=== PATIENT | male | born 1970 | race African-American/Black ===

== ENCOUNTER 2018-05-14 18:12 | Inpatient (IN) ==
[2018-05-14 19:14] LABS: Basophils % 0.4 % (0.0-0.8); Eosinophils % 0.9 % (0.00-10.9); Immature Granulocytes % 0.2 %; Immature Granulocytes Absolute 0.01 #; Lymphocytes # 1.3 10*3/uL (1.4-4.0); Lymphocytes % 29.7 % (21.2-54.2); Mean Corpuscular HGB Conc 32.5 GM/DL (32-36); Mean Corpuscular Hemoglobin 30 PG (27-34); Mean Corpuscular Volume 92.8 FL (87-102); Mean Platelet Volume 8.8 FL (9.6-12.0); Monocytes # 0.5 10*3/uL (0.11-0.8); Monocytes % 11.1 % (1.7-12.7); Neutrophils # 2.6 10*3/uL (1.4-7.4); Neutrophils % 57.7 % (38.7-73.9); Platelet Count 237 T/CUMM (130-400); Red Blood Count 4.31 MC/CUMM (3.8-5.5); White Blood Count 4.5 T/CUMM (4-12)
[2018-05-14 19:22] LABS: Partial Thromboplastin Time 27.8 SECS (0-40)
[2018-05-14 19:36] LABS: Albumin 3.3 G/DL (3.4-5.0); Bilirubin,Total 0.5 MG/DL (0.2-1.0); Calcium 8.3 MG/DL (8.5-10.1); Osmolality,Calculated 280.3 MOS/KG (273-304); Total Protein 6.5 G/DL (6.4-8.3)
[2018-05-14 20:16] LABS: Troponin I Only < 0.015 NG/ML (0.00-0.045)
[2018-05-14] MEDS ORDERED: SODIUM CHLORIDE 0.45% 1,000 ML IV ONE (20:19)
[2018-05-14] MEDS: SODIUM CHLORIDE 0.45% 1,000 ML IV SCH (22:08)
[2018-05-14] MEDS ORDERED: ACETAMINOPHEN 325 MG TABLET PO PRN (22:28)
[2018-05-14] MEDS ORDERED: DEXTROSE 50% 25 GM/50 ML VIAL IV PRN (22:28)
[2018-05-14] MEDS ORDERED: ONDANSETRON 4 MG/2 ML VIAL IV PRN (22:28)
[2018-05-14] MEDS ORDERED: GLUCAGON 1 MG VIAL IM PRN (22:28)
[2018-05-14] MEDS ORDERED: traMADol 50 MG TABLET PO PRN (22:31)
[2018-05-14] MEDS ORDERED: ALBUTEROL/IPRATROPIUM 3 ML NEB RESP TX PRN (22:31)
[2018-05-14] MEDS ORDERED: ZALEPLON 5 MG CAPSULE PO PRN (22:31)
[2018-05-14] MEDS ORDERED: INSULIN GLARGINE HUM REC ANLOG 65 UNIT SUBCUT PRN (22:31)
[2018-05-14] MEDS ORDERED: DIAZEPAM 5 MG TABLET PO PRN (22:31)
[2018-05-14] MEDS ORDERED: ALBUTEROL 2.5 MG/3 ML NEB RESP TX PRN (22:31)
[2018-05-14] MEDS ORDERED: SODIUM CHLORIDE 0.9% 1,000 ML IV PRN (22:58)
[2018-05-14 23:08] LABS: Hematocrit 40.6 VOL% (42.0-52.0); Hemoglobin 13.3 GM/DL (14.0-18.0)
[2018-05-15] MEDS: BUDESONIDE/FORMOTEROL 160-4.5 INHALER 6 GM INH SCH ×3 (00:05→20:35)
[2018-05-15] MEDS: FLUTICASONE 50 MCG NASAL SPRAY 16 GM BOTTLE BOTH NARES SCH ×3 (00:05→20:38)
[2018-05-15] MEDS: PREGABALIN 50 MG CAPSULE PO SCH ×3 (00:11→20:35)
[2018-05-15] MEDS: ATORVASTATIN 20 MG TABLET PO SCH ×2 (00:12→20:35)
[2018-05-15] MEDS: POTASSIUM CHLORIDE 20 MEQ TABLET PO SCH ×3 (00:15→20:35)
[2018-05-15] MEDS: FLECAINIDE 100 MG TABLET PO SCH ×3 (00:15→20:34)
[2018-05-15 05:09] LABS: Basophils % 0.6 % (0.0-0.8); Eosinophils # 0.1 10*3/uL (0.0-0.87); Eosinophils % 1.4 % (0.00-10.9); Hematocrit 37.3 VOL% (42.0-52.0); Hematocrit 37.8 VOL% (42.0-52.0); Hemoglobin 12.4 GM/DL (14.0-18.0); Immature Granulocytes % 0.3 %; Immature Granulocytes Absolute 0.01 #; Lymphocytes # 1.5 10*3/uL (1.4-4.0); Lymphocytes % 40.2 % (21.2-54.2); Mean Corpuscular HGB Conc 32.8 GM/DL (32-36); Mean Corpuscular Hemoglobin 30 PG (27-34); Mean Corpuscular Volume 91.7 FL (87-102); Mean Platelet Volume 8.9 FL (9.6-12.0); Monocytes # 0.4 10*3/uL (0.11-0.8); Monocytes % 10.8 % (1.7-12.7); Neutrophils # 1.7 10*3/uL (1.4-7.4); Neutrophils % 46.7 % (38.7-73.9); Platelet Count 219 T/CUMM (130-400); Red Blood Count 4.12 MC/CUMM (3.8-5.5); White Blood Count 3.6 T/CUMM (4-12)
[2018-05-15] MEDS: INSULIN LISPRO 100 UNIT/ML SUBCUT SCH ×3 (05:30→17:09)
[2018-05-15 05:39] LABS: Calcium 8.1 MG/DL (8.5-10.1); Osmolality,Calculated 278.4 MOS/KG (273-304); Potassium 3.7 MMOL/L (3.5-5.1)
[2018-05-15] MEDS: MORPHINE 4 MG/1 ML VIAL IV PRN ×3 (05:45→18:06)
[2018-05-15] MEDS ORDERED: INSULIN LISPRO 100 UNIT/ML SUBCUT SCH (07:30)
[2018-05-15] MEDS: SODIUM CHLORIDE 0.45% 1,000 ML IV SCH ×2 (07:43→16:12)
[2018-05-15 09:58] LABS: Hematocrit 38.5 VOL% (42.0-52.0); Hemoglobin 12.5 GM/DL (14.0-18.0)
[2018-05-15] MEDS: CHOLECALCIFEROL 1,000 UNIT TABLET PO SCH (10:43)
[2018-05-15] MEDS: MONTELUKAST 10 MG TABLET PO SCH (10:43)
[2018-05-15] MEDS: PANTOPRAZOLE 40 MG TABLET PO SCH (10:43)
[2018-05-15] MEDS: FERROUS SULFATE 325 MG TABLET PO SCH (10:44)
[2018-05-15] MEDS: MULTIVITAMIN (CENTRUM) TABLET PO SCH (10:44)
[2018-05-15] MEDS: DILTIAZEM CD 300 MG CAPSULE PO SCH (10:44)
[2018-05-15] MEDS: CYCLOBENZAPRINE 10 MG TABLET PO SCH ×3 (10:44→20:35)
[2018-05-15 15:34] LABS: Hematocrit 37.1 VOL% (42.0-52.0); Hemoglobin 12.2 GM/DL (14.0-18.0)
[2018-05-15] MEDS: BISACODYL 5 MG TABLET PO SCH (16:13)
[2018-05-15] MEDS ORDERED: POLYETHYLENE GLYCOL POWDER 255 GM BOTTLE PO ONE (18:00)
[2018-05-15] MEDS ORDERED: MAGNESIUM CITRATE 300 ML BOTTLE PO ONE (21:00)
[2018-05-16] MEDS: SODIUM CHLORIDE 0.45% 1,000 ML IV SCH ×3 (00:25→15:26)
[2018-05-16] MEDS: BISACODYL 5 MG TABLET PO SCH ×2 (00:30→06:36)
[2018-05-16] MEDS: MORPHINE 4 MG/1 ML VIAL IV PRN ×3 (01:24→15:30)
[2018-05-16] MEDS: INSULIN LISPRO 100 UNIT/ML SUBCUT SCH ×4 (01:28→17:55)
[2018-05-16 07:55] LABS: Basophils % 0.3 % (0.0-0.8); Eosinophils # 0.1 10*3/uL (0.0-0.87); Eosinophils % 2.3 % (0.00-10.9); Hematocrit 37.8 VOL% (42.0-52.0); Hemoglobin 12.4 GM/DL (14.0-18.0); Lymphocytes # 1.4 10*3/uL (1.4-4.0); Lymphocytes % 46.3 % (21.2-54.2); Mean Corpuscular HGB Conc 32.8 GM/DL (32-36); Mean Corpuscular Hemoglobin 30 PG (27-34); Mean Corpuscular Volume 90.6 FL (87-102); Mean Platelet Volume 8.9 FL (9.6-12.0); Monocytes # 0.5 10*3/uL (0.11-0.8); Monocytes % 16.3 % (1.7-12.7); Neutrophils % 34.8 % (38.7-73.9); Platelet Count 229 T/CUMM (130-400); Red Blood Count 4.17 MC/CUMM (3.8-5.5)
[2018-05-16 08:20] LABS: Anisocytosis Slight; Band Neutrophils 10 % (0-10); Eosinophils 3 % (0-10); Lymphocytes 51 % (20-55); Platelet Estimate Normal; Segmented Neutrophils 25 % (50-85); Total Cells Counted 100
[2018-05-16 08:23] LABS: Calcium 7.9 MG/DL (8.5-10.1); Osmolality,Calculated 275.4 MOS/KG (273-304); Potassium 4.4 MMOL/L (3.5-5.1)
[2018-05-16] MEDS: DILTIAZEM CD 300 MG CAPSULE PO SCH (10:22)
[2018-05-16] MEDS: FLECAINIDE 100 MG TABLET PO SCH ×2 (10:22→21:04)
[2018-05-16] MEDS: PANTOPRAZOLE 40 MG TABLET PO SCH (10:23)
[2018-05-16] MEDS: MONTELUKAST 10 MG TABLET PO SCH (10:23)
[2018-05-16] MEDS: BUDESONIDE/FORMOTEROL 160-4.5 INHALER 6 GM INH SCH ×2 (10:23→21:04)
[2018-05-16] MEDS: PREGABALIN 50 MG CAPSULE PO SCH ×2 (10:24→21:04)
[2018-05-16] MEDS: POTASSIUM CHLORIDE 20 MEQ TABLET PO SCH ×2 (10:24→21:04)
[2018-05-16] MEDS: CYCLOBENZAPRINE 10 MG TABLET PO SCH ×3 (10:25→21:04)
[2018-05-16] MEDS: FLUTICASONE 50 MCG NASAL SPRAY 16 GM BOTTLE BOTH NARES SCH ×2 (10:25→21:05)
[2018-05-16] MEDS: FERROUS SULFATE 325 MG TABLET PO SCH (10:25)
[2018-05-16] MEDS: CHOLECALCIFEROL 1,000 UNIT TABLET PO SCH (10:25)
[2018-05-16] MEDS: MULTIVITAMIN (CENTRUM) TABLET PO SCH (10:25)
[2018-05-16] MEDS ORDERED: PHENYLEPHRINE 1 MG/10 ML SYRINGE IV ONE (13:50)
[2018-05-16] MEDS ORDERED: LIDOCAINE 100 MG/5 ML SYRINGE ONE (13:50)
[2018-05-16] MEDS ORDERED: PROPOFOL 200 MG/20 ML VIAL IV ONE (13:50)
[2018-05-16] MEDS: COLESTIPOL 1 GM TABLET PO SCH (21:04)
[2018-05-16] MEDS: ATORVASTATIN 20 MG TABLET PO SCH (21:04)
[2018-05-17] MEDS: SODIUM CHLORIDE 0.45% 1,000 ML IV SCH ×3 (00:03→17:07)
[2018-05-17] MEDS: INSULIN LISPRO 100 UNIT/ML SUBCUT SCH ×4 (00:57→19:21)
[2018-05-17 04:51] LABS: Basophils % 0.5 % (0.0-0.8); Eosinophils # 0.1 10*3/uL (0.0-0.87); Eosinophils % 2.2 % (0.00-10.9); Hematocrit 40.1 VOL% (42.0-52.0); Hemoglobin 13.1 GM/DL (14.0-18.0); Immature Granulocytes % 0.2 %; Immature Granulocytes Absolute 0.01 #; Lymphocytes # 1.9 10*3/uL (1.4-4.0); Lymphocytes % 46.8 % (21.2-54.2); Mean Corpuscular HGB Conc 32.7 GM/DL (32-36); Mean Corpuscular Hemoglobin 30 PG (27-34); Mean Platelet Volume 9.1 FL (9.6-12.0); Monocytes # 0.5 10*3/uL (0.11-0.8); Monocytes % 11.4 % (1.7-12.7); Neutrophils # 1.6 10*3/uL (1.4-7.4); Neutrophils % 38.9 % (38.7-73.9); Platelet Count 233 T/CUMM (130-400); Red Blood Count 4.36 MC/CUMM (3.8-5.5); Red Cell Distribution Width 12.9 % (9.3-17.3)
[2018-05-17 05:22] LABS: Calcium 8.6 MG/DL (8.5-10.1); Osmolality,Calculated 280.1 MOS/KG (273-304); Potassium 4.3 MMOL/L (3.5-5.1)
[2018-05-17] MEDS: FLECAINIDE 100 MG TABLET PO SCH ×2 (08:54→21:14)
[2018-05-17] MEDS: PREGABALIN 50 MG CAPSULE PO SCH ×2 (08:55→21:14)
[2018-05-17] MEDS: CHOLECALCIFEROL 1,000 UNIT TABLET PO SCH (08:55)
[2018-05-17] MEDS: POTASSIUM CHLORIDE 20 MEQ TABLET PO SCH ×2 (08:56→21:15)
[2018-05-17] MEDS: MULTIVITAMIN (CENTRUM) TABLET PO SCH (08:56)
[2018-05-17] MEDS: COLESTIPOL 1 GM TABLET PO SCH ×2 (08:56→21:15)
[2018-05-17] MEDS: DILTIAZEM CD 300 MG CAPSULE PO SCH (08:56)
[2018-05-17] MEDS: MONTELUKAST 10 MG TABLET PO SCH (08:56)
[2018-05-17] MEDS: FERROUS SULFATE 325 MG TABLET PO SCH (08:56)
[2018-05-17] MEDS: PANTOPRAZOLE 40 MG TABLET PO SCH ×2 (08:56→21:15)
[2018-05-17] MEDS: CYCLOBENZAPRINE 10 MG TABLET PO SCH ×3 (08:56→21:14)
[2018-05-17] MEDS: FLUTICASONE 50 MCG NASAL SPRAY 16 GM BOTTLE BOTH NARES SCH ×2 (08:58→21:15)
[2018-05-17] MEDS: BUDESONIDE/FORMOTEROL 160-4.5 INHALER 6 GM INH SCH ×2 (09:02→21:16)
[2018-05-17] MEDS: MORPHINE 4 MG/1 ML VIAL IV PRN (11:07)
[2018-05-17] MEDS ORDERED: ALUMINUM/MAGNES/SIMETH MAX STR 30 ML UDCUP PO PRN (12:21)
[2018-05-17] MEDS: ATORVASTATIN 20 MG TABLET PO SCH (21:15)
[2018-05-18] MEDS: INSULIN LISPRO 100 UNIT/ML SUBCUT SCH ×3 (00:30→13:24)
[2018-05-18] MEDS: MORPHINE 4 MG/1 ML VIAL IV PRN ×2 (00:30→10:01)
[2018-05-18] MEDS: SODIUM CHLORIDE 0.45% 1,000 ML IV SCH ×2 (00:34→10:29)
[2018-05-18 06:02] LABS: Basophils % 0.4 % (0.0-0.8); Eosinophils # 0.2 10*3/uL (0.0-0.87); Eosinophils % 3.2 % (0.00-10.9); Hematocrit 37.8 VOL% (42.0-52.0); Hemoglobin 12.1 GM/DL (14.0-18.0); Immature Granulocytes % 0.2 %; Immature Granulocytes Absolute 0.01 #; Lymphocytes # 2.7 10*3/uL (1.4-4.0); Lymphocytes % 54.8 % (21.2-54.2); Mean Corpuscular Hemoglobin 30 PG (27-34); Mean Corpuscular Volume 92.2 FL (87-102); Mean Platelet Volume 8.8 FL (9.6-12.0); Monocytes # 0.5 10*3/uL (0.11-0.8); Monocytes % 9.8 % (1.7-12.7); Neutrophils # 1.6 10*3/uL (1.4-7.4); Neutrophils % 31.6 % (38.7-73.9); Platelet Count 220 T/CUMM (130-400); Red Cell Distribution Width 12.9 % (9.3-17.3)
[2018-05-18 06:30] LABS: Atypical Lymphocytes Few; Band Neutrophils 2 % (0-10); Eosinophils 1 % (0-10); Lymphocytes 55 % (20-55); Segmented Neutrophils 35 % (50-85); Total Cells Counted 100
[2018-05-18 06:34] LABS: Calcium 8.2 MG/DL (8.5-10.1); Osmolality,Calculated 278.3 MOS/KG (273-304); Potassium 4.1 MMOL/L (3.5-5.1)
[2018-05-18] MEDS: FERROUS SULFATE 325 MG TABLET PO SCH (09:58)
[2018-05-18] MEDS: CHOLECALCIFEROL 1,000 UNIT TABLET PO SCH (09:58)
[2018-05-18] MEDS: FLECAINIDE 100 MG TABLET PO SCH (09:58)
[2018-05-18] MEDS: PREGABALIN 50 MG CAPSULE PO SCH (09:58)
[2018-05-18] MEDS: DILTIAZEM CD 300 MG CAPSULE PO SCH (09:59)
[2018-05-18] MEDS: FLUTICASONE 50 MCG NASAL SPRAY 16 GM BOTTLE BOTH NARES SCH (09:59)
[2018-05-18] MEDS: MONTELUKAST 10 MG TABLET PO SCH (09:59)
[2018-05-18] MEDS: MULTIVITAMIN (CENTRUM) TABLET PO SCH (09:59)
[2018-05-18] MEDS: PANTOPRAZOLE 40 MG TABLET PO SCH (09:59)
[2018-05-18] MEDS: CYCLOBENZAPRINE 10 MG TABLET PO SCH (09:59)
[2018-05-18] MEDS: POTASSIUM CHLORIDE 20 MEQ TABLET PO SCH (09:59)
[2018-05-18] MEDS: BUDESONIDE/FORMOTEROL 160-4.5 INHALER 6 GM INH SCH (09:59)
[2018-05-18] MEDS: COLESTIPOL 1 GM TABLET PO SCH (09:59)
[2018-05-18 11:44] VITALS: BP 152/82
== END 2018-05-18 13:05 | disposition home or self-care (01) | DRG 372 ==
LOC: EDUNIT# → EDBD → N.ED 18:12 → SUATTDRO 21:31 → N.2E 21:31
PROVIDERS: ADMIT Internal Medicine; ATTEND Internal Medicine
PROC: COLONBX (2018-05-16 07:05)